=== PATIENT | female | born 1960 | race Caucasian/White ===

== ENCOUNTER 2020-06-18 22:01 | Inpatient (IN) | payer MEDICAID ==
[~2020-06-18] VITALS: Ht 157.5 cm; Wt 90.5 kg
[2020-06-18] MEDS ORDERED: ONDANSETRON 2MG/ML, 2ML ONE (22:14)
[2020-06-18] MEDS ORDERED: HYDROmorphone 1 MG/ML, 1ML INJ ONE (22:14)
[2020-06-18] MEDS ORDERED: ONDANSETRON 2MG/ML, 2ML IVPush ONE (22:30)
[2020-06-18] MEDS ORDERED: HYDROmorphone 1 MG/ML, 1ML INJ IV ONE (22:30)
[2020-06-18] MEDS ORDERED: KETOROLAC 30 MG/1 ML ONE (23:51)
[2020-06-18] MEDS ORDERED: methylPREDNISolone SOD SUCC 125 MG/2 ML ONE (23:51)
[2020-06-19] MEDS ORDERED: KETOROLAC 30 MG/1 ML IVPush ONE
[2020-06-19] MEDS ORDERED: methylPREDNISolone SOD SUCC 125 MG/2 ML IVPush SCH
[2020-06-19] MEDS ORDERED: OXYC5TAB98 PO (00:06)
[2020-06-19] MEDS ORDERED: LIDODERM 5% PATCH TD PRN (00:30)
[2020-06-19] MEDS ORDERED: ONDANSETRON 2MG/ML, 2ML IVPush PRN (00:30)
[2020-06-19] MEDS ORDERED: POLYETHYLENE GLYCOL 17 GM PACKET PO PRN (00:30)
[2020-06-19] MEDS ORDERED: BISACODYL 10 MG SUPP PR PRN (00:30)
[2020-06-19] MEDS ORDERED: hydrALAzine 20 MG/ML, 1ML IVPush PRN (00:30)
[2020-06-19] MEDS ORDERED: PROMETHAZINE 25 MG/ML, 1ML IM PRN (00:30)
[2020-06-19] MEDS ORDERED: ONDANSETRON ODT 4 MG PO PRN (00:30)
[2020-06-19] MEDS: GABAPENTIN 100 MG CAPSULE PO SCH ×4 (01:00→15:39)
[2020-06-19] MEDS: SODIUM CHLORIDE 0.9% 1,000 ML IV SCH ×2 (01:27→15:25)
[2020-06-19] MEDS: METHOCARBAMOL 500 MG TABLET PO PRN ×2 (01:28→10:17)
[2020-06-19] MEDS: morphine SULFATE 10 MG/ML, 1ML IVPush PRN ×4 (01:28→14:00)
[2020-06-19] MEDS: OXYcodone IR 5MG TABLET PO PRN ×3 (01:29→11:38)
[2020-06-19 01:44] VITALS: BP 100/62
[2020-06-19] MEDS ORDERED: FLU VACC QS2020-21(6MOS UP)/PF 60MCG/0.5 ML SYR IM ONE (02:00)
[2020-06-19 04:52] LABS: BASOPHILS % (AUTO) 0 % (0-1); EOSINOPHILS % (AUTO) 0 % (1-7); LYMPHOCYTES % (AUTO) 11 % (22-44); MEAN CORPUSCULAR HEMOGLOBIN 29.9 pg (27.0-34.8); MEAN CORPUSCULAR HGB CONC 33.2 g/dL (32.4-35.8); MEAN PLATELET VOLUME 8.5 fL (7.4-10.4); MONOCYTES % (AUTO) 1 % (2-9); NEUTROPHILS % (AUTO) 88 % (42-75); PLATELET COUNT 267 x10^3/uL (130-400); RED BLOOD COUNT 4.36 x10^6/uL (3.82-5.3); RED CELL DISTRIBUTION WIDTH 13.4 % (9.6-15.2)
[2020-06-19 04:53] LABS: MD NO
[2020-06-19 05:06] LABS: CHLORIDE 107 mmol/L (98-107)
[2020-06-19 05:17] LABS: ALANINE AMINOTRANSFERASE 24 U/L (12-78); ALBUMIN 3.2 g/dL (3.4-5.0); ALKALINE PHOSPHATASE 97 U/L (45-117); ANION GAP 4 mmol/L (5-15); BILIRUBIN,TOTAL 0.7 mg/dL (0.2-1.0); CALCIUM 8.2 mg/dL (8.5-10.1); CHOL/HDL RATIO 2.6; CHOLESTEROL, TOTAL 147 mg/dL (140-239); CREATININE 0.87 mg/dL (0.55-1.02); HDL CHOL % 38 % (28-40); HDL CHOLESTEROL (DIRECT) 56 mg/dL (40-60); LDL CHOLESTEROL,CALCULATED 74 mg/dL (54-169); LDL/HDL RATIO 1.3 (0.5-3.0); TOTAL PROTEIN 7.2 g/dL (6.4-8.2); TRIGLYCERIDES 87 mg/dL (50-200); VLDL CHOLESTEROL 17 mg/dL (0-25)
[2020-06-19 07:35] VITALS: BP 122/72
[2020-06-19] MEDS: DEXAMETHASONE 4 MG/ML, 1ML IVPush SCH ×2 (07:55→15:25)
[2020-06-19] MEDS ORDERED: SENNA/DOCUSATE TABLET PO SCH (09:00)
[2020-06-19] MEDS ORDERED: FLUOXETINE HCL 20 MG CAPSULE PO SCH (09:00)
[2020-06-19] MEDS ORDERED: LISINOPRIL 10 MG TABLET PO SCH (09:00)
[2020-06-19] MEDS: ACETAMINOPHEN 325 MG TABLET PO PRN ×2 (10:17→15:25)
[2020-06-19] MEDS ORDERED: PREG25CA PO (10:54)
[2020-06-19] MEDS ORDERED: NALO25TA4 PO (10:57)
[2020-06-19] MEDS ORDERED: LISI10TA19 PO (10:59)
[2020-06-19 13:12] VITALS: BP 138/78
[2020-06-19] MEDS ORDERED: METH4TAB2 PO (15:31)
== END 2020-06-19 17:28 | disposition home or self-care (01) | DRG 347 ==
LOC: ED 22:31 → EDIP 06-19 01:09 → 4NE 06-19 01:10
PROVIDERS: ADMIT Internal Medicine; ATTEND Family Medicine
DX: M51.16 Intervertebral disc disorders with radiculopathy, lumbar region (principal); F17.200 Nicotine dependence, unspecified, uncomplicated; F32.9 Major depressive disorder, single episode, unspecified; F41.9 Anxiety disorder, unspecified; G89.29 Other chronic pain; I10 Essential (primary) hypertension; R33.9 Retention of urine, unspecified; F17.210 Nicotine dependence, cigarettes, uncomplicated; M47.26 Other spondylosis with radiculopathy, lumbar region; M48.061 Spinal stenosis, lumbar region without neurogenic claudication; Z85.44 Personal history of malignant neoplasm of other female genital organs; Z90.710 Acquired absence of both cervix and uterus; Z88.1 Allergy status to other antibiotic agents; Z88.2 Allergy status to sulfonamides; Z88.8 Allergy status to other drugs, medicaments and biological substances; Z88.5 Allergy status to narcotic agent
CPT/HCPCS: 36415; 72148; 80053; 80061; 83036; 83735; 84100; 84443; 85025; 90686; 96374; 99285; 99406; G0378; J1100; J1170; J1885; J2405; J2270; J2930; J7030